=== PATIENT | male | born 1965 | race Caucasian/White ===

== ENCOUNTER 2022-09-10 12:02 | Outpatient (CLI) | payer BC, SELFPAY ==
[2022-09-10 23:19] LABS: Chloride* 104 mmol/L (96-114); Potassium* 4.9 mmol/L (3.6-5.1); Sodium* 138 mmol/L (135-149)
[2022-09-10 23:21] LABS: Cholesterol* 166 mg/dL (90-199)
[2022-09-10 23:22] LABS: Blood Urea Nitrogen* 11 mg/dL (7-30); Calcium* 9.3 mg/dL (8.4-10.6); Carbon Dioxide* 28 mmol/L (20-32); Creatinine* 0.7 mg/dL (0.5-1.5); Estimated Glomerular Filt Rate 106 ml/min; Glucose* 90 mg/dL (60-115); HDL Cholesterol* 64 mg/dL (>=40); LDL Cholesterol Calculated 64 mg/dL (<100); Triglycerides* 189 mg/dL (40-149)
[2022-09-10 23:49] LABS: PSA Screen* 0.75 ng/mL (0.10-4.00)
== END 2022-09-10 12:03 | disposition home or self-care (01) ==
PROVIDERS: PCP Family Medicine; Visit Provider Family Medicine
DX: I10 Essential (primary) hypertension (principal); E78.5 Hyperlipidemia, unspecified; Z12.5 Encounter for screening for malignant neoplasm of prostate
CPT/HCPCS: 80048; 80061; 84153